=== PATIENT | female | born 1990 | race Caucasian/White ===

== ENCOUNTER 2023-01-31 23:06 | Inpatient (IN) | payer BC ==
[2023-01-31] MEDS ORDERED: OXYTOCIN 10 UNIT/ML 1 ML VIAL IM PRN (23:34)
[2023-01-31] MEDS ORDERED: METHYLERGONOVINE 0.2 MG/ML 1 ML AMP IM PRN (23:34)
[2023-01-31] MEDS ORDERED: LIDOCAINE 0.5% (PF) 5 MG/ML (50 ML SDV) SQ PRN (23:34)
[2023-01-31] MEDS ORDERED: CARBOPROST TROMETHAMINE 250 MCG/ML 1 ML AMP IM PRN (23:34)
[2023-01-31] MEDS ORDERED: TERBUTALINE 1 MG/ML VIAL SQ PRN (23:34)
[2023-01-31] MEDS ORDERED: miSOPROStoL 200 MCG TAB PO PRN (23:34)
[2023-01-31] MEDS ORDERED: TRANEXAMIC 1,000 MG/100ML-NACL 1,000 MG in EMPTY BAG 1 BAG IV PRN (23:34)
[2023-01-31] MEDS ORDERED: LACTATED RINGERS 1,000 ML IV SCH (23:45)
[2023-02-01 00:34] VITALS: RESP 16
[2023-02-01 00:37] LABS: Basophils % (A) 0 %; Eosinophils # (A) 0.2 k/uL (0-0.7); Eosinophils % (A) 2 %; HCT 36.3 % (34.0-46.0); HGB 12.1 gm/dL (11.4-16.0); Lymphocytes # (A) 2.4 k/uL (1.0-4.8); Lymphocytes % (A) 24 %; MCH 29.4 pg (25.0-35.0); MCHC 33.4 g/dL (31.0-37.0); MCV 88.2 fL (80.0-100.0); Mean Platelet Volume 9.5; Monocytes # (A) 0.7 k/uL (0-1.0); Monocytes % (A) 6 %; Neutrophils # (A) 6.7 k/uL (1.3-7.7); Neutrophils % (A) 66 %; Platelet Count 281 k/uL (150-450); RBC 4.11 m/uL (3.80-5.40); RDW 13.2 % (11.5-15.5); WBC 10.2 k/uL (3.8-10.6)
--- NOTE | 2023-02-01 02:40 | P.HPOB ---
History of Present Illness H&P Date: 02/01/23 Chief Complaint: Labor at 40-4/7 This is a 32-year-old 3 para 1011 woman with an estimated due date of 01/28/2023 who presents at 40-4/7 weeks gestation in spontaneous active labor. She's had an uncomplicated . Obstetrical history is significant for one term vaginal delivery in 2019 of an 8 lbs. 4 oz. and 1 early first trimester spontaneous miscarriage. Laboratory data: Blood type A+ antibody screen negative, rubella immune, VDRL nonreactive, hepatitis B surface antigen negative, HIV negative, gonorrhea and clinic cultures negative, group B strep negative Review of Systems All systems: negative Past Medical History Past Medical History: No Reported History History of Any Multi-Drug Resistant Organisms: None Reported Past Surgical History: No Surgical Hx Reported Past Anesthesia/Blood Transfusion Reactions: No Reported Reaction Past Psychological History: No Psychological Hx Reported, Anxiety Smoking Status: Never smoker Past Drug Use History: None Reported Medications and Allergies Home Medications Medication Instructions Recorded Confirmed Type Vit No.179/Iron/Folic 1 tab PO DAILY 01/31/23 01/31/23 History [ Tablet] Allergies Allergy/AdvReac Type Severity Reaction Status Date / Time adhesive Allergy Rash/Hives Verified 01/31/23 23:24 Exam Vital Signs Temp Pulse Resp BP Pulse Ox 01/31/23 23:48 98.1 F 92 16 130/77 97 Intake and Output 01/31/23 01/31/23 02/01/23 14:59 22:59 06:59 Other: Weight 90.718 kg Upon my initial evaluation on the patient's cervix is 9 cm dilated 100% effaced and the vertex in the 0 station. No membranes are palpable. She is actively laboring. heart tones are category 1. Results Result Diagrams: 02/01/23 00:16 Assessment and Plan (1) Post-dates Current Visit: Yes Status: Acute Code(s): O48.0 - POST-TERM SNOMED Code(s): 84353278 (2) Spontaneous onset of labor Current Visit: Yes Status: Acute Code(s): SHO9998 - SNOMED Code(s): 94658615 (3) Spontaneous rupture of membranes Current Visit: Yes Status: Acute Code(s): WAO3795 - SNOMED Code(s): 435103441 Plan: 32-year-old 3 para 1 admitted in spontaneous advanced active labor at 40-4/7 weeks' gestation. Group B strep negative and Rh+. heart tones are reassuring by external monitoring. Anticipate normal spontaneous vaginal delivery.
[2023-02-01] MEDS ORDERED: SIMETHICONE 80 MG CHEWABLE PO PRN (03:03)
[2023-02-01] MEDS ORDERED: diphenhydrAMINE 50 MG/ML 1 ML VIAL IVP PRN ×2 (03:03)
[2023-02-01] MEDS ORDERED: ZOLPIDEM 5 MG TAB PO PRN (03:03)
[2023-02-01] MEDS ORDERED: HYDROCORTISONE 2.5% RECTAL CREAM 30 GM TUBE RECTAL PRN (03:03)
[2023-02-01] MEDS ORDERED: diphenhydrAMINE 50 MG CAP PO PRN (03:03)
[2023-02-01] MEDS ORDERED: LANOLIN CREAM 5 GM TUBE TOPICAL PRN (03:03)
[2023-02-01] MEDS ORDERED: diphenhydrAMINE 25 MG CAP PO PRN (03:03)
[2023-02-01] MEDS ORDERED: BENZOCAINE/MENTHOL SPRAY 1 GM/SPRAY AEROSOL TOPICAL PRN (03:03)
--- NOTE | 2023-02-01 03:03 | P.PROBDLV ---
Vaginal Delivery Note - . Vaginal Delivery Note: Findings: Female in the vertex presentation with Apgars of 8 at 1 minute and 9 at 5 minutes. Weight pending. First-degree perineal laceration. Intact three-vessel cord placenta. EBL approximately 100 mL's. Delivery summary: This is a 32 year old 3 para 1011 woman who presented at 40-4/7 weeks gestation in active labor. She had a known, located . She denied rupture of membranes. Following admission she had rapid progression to complete cervical dilation and had strong urge to push. She had spontaneous rupture of membranes with clear fluid noted. She was repositioned, prepped and draped in the dorsal modified Mark position. With additional maternal effort 1 the head followed rapidly by the shoulders and the rest of the body delivered. The nose and mouth were bulb suctioned and the infant was placed on the maternal abdomen. Eventually the cord was clamped and cut. Apgars were 8 at 1 minute and 9 at 5 minutes. Weight pending. An intact, three-vessel cord placenta was then delivered after an approximately 5 minute third stage of labor. The perineum was inspected and a first-degree perineal laceration was noted. This was infused with lidocaine and repaired with a single [id number] stitch with 3-0 Vicryl suture. The uterus was massaged and was noted to be firm. both mother and infant were doing well post delivery in the room. Counts correct.
[2023-02-01] MEDS ORDERED: OXYTOCIN 30 UNITS/500 ML NS 30 UNIT in SALINE 1 500ML.BAG IV SCH (03:15)
[2023-02-01] MEDS ORDERED: ACETAMINOPHEN TAB 325 MG TAB PO PRN (03:30)
[2023-02-01] MEDS ORDERED: IBUPROFEN 600 MG TAB PO PRN (03:31)
[2023-02-01] MEDS: SENNOSIDES-DOCUSATE SODIUM 1 EACH TAB PO SCH ×2 (08:38→20:14)
[2023-02-02 08:09] LABS: Basophils % (A) 0 %; Eosinophils # (A) 0.2 k/uL (0-0.7); Eosinophils % (A) 2 %; HCT 35.2 % (34.0-46.0); HGB 11.7 gm/dL (11.4-16.0); Lymphocytes # (A) 2.4 k/uL (1.0-4.8); Lymphocytes % (A) 23 %; MCH 30.1 pg (25.0-35.0); MCHC 33.4 g/dL (31.0-37.0); Mean Platelet Volume 9.5; Monocytes # (A) 0.4 k/uL (0-1.0); Monocytes % (A) 4 %; Neutrophils # (A) 7.3 k/uL (1.3-7.7); Neutrophils % (A) 69 %; Platelet Count 279 k/uL (150-450); RBC 3.91 m/uL (3.80-5.40); RDW 13.2 % (11.5-15.5); WBC 10.5 k/uL (3.8-10.6)
[2023-02-02 08:33] VITALS: BP 110/69; PULSE 91; TEMP 98.7
[2023-02-02] MEDS: SENNOSIDES-DOCUSATE SODIUM 1 EACH TAB PO SCH (08:47)
--- NOTE | 2023-02-02 08:56 | P.DS ---
Providers Date of admission: 01/31/23 23:35 Expected date of discharge: 02/02/23 Attending physician: Mary Caputo MD Primary care physician: Stated None - Discharge Diagnosis(es) (1) Post-dates Current Visit: Yes Status: Acute (2) Spontaneous onset of labor Current Visit: Yes Status: Acute (3) Spontaneous rupture of membranes Current Visit: Yes Status: Acute (4) Normal spontaneous vaginal delivery Current Visit: Yes Status: Acute (5) Perineal laceration with delivery, first degree Current Visit: Yes Status: Acute Hospital Course: This is a 32-year-old 3 now para 2012 woman who is admitted at 40-4/7 weeks gestation in spontaneous active labor. Following admission she had rapid progression to complete cervical dilation. She had spontaneous rupture of membranes at that time. She had a rapid delivery of a liveborn female over a first-degree perineal laceration. Please see the delivery summary for details. Patient's course was unremarkable. By the morning of day #1 she was ambulating and voiding without difficulty, her lochia was decreasing and she was breast-feeding successfully. Her vital signs were stable and postoperative labs within normal limits. She was therefore discharged home with routine instructions for care and follow-up. Of note she did have a history of significant depression with her last delivery and signs of depression and treatment options were reviewed with the patient in detail. Patient Condition at Discharge: Good Plan - Discharge Summary New Discharge Prescriptions: No Action Vit No.179/Iron/Folic [ Tablet] 1 tab PO DAILY Discharge Medication List Vit No.179/Iron/Folic [ Tablet] 1 tab PO DAILY 01/31/23 [History] Follow up Appointment(s)/Referral(s): Mary Caputo MD [STAFF PHYSICIAN] - 4 Weeks Activity/Diet/Wound Care/Special Instructions: Follow-up in the office in 6 weeks . Call with any concerning signs or symptoms including heavy vaginal bleeding, severe abdominal pain, fever greater than 101, swelling or redness of the lower extremities, foul vaginal discharge, or signs of depression. Nothing in the vagina for 6 weeks after delivery, specifically no intercourse.
== END 2023-02-02 12:30 | disposition home or self-care (01) | DRG 807 ==
LOC: FBPOP 23:06 → 4FBP 23:35
PROVIDERS: ADMIT Obstetrics & Gynecology; ATTEND Obstetrics & Gynecology
PROC: 10E0XZZ Delivery of Products of Conception, External Approach (ICD-10-PCS; principal; 2023-02-01)
PROC: 0HQ9XZZ Repair Perineum Skin, External Approach (ICD-10-PCS; 2023-02-01)
DX: O48.0 Post-term pregnancy (principal); Z37.0 Single live birth; O62.3 Precipitate labor; O70.0 First degree perineal laceration during delivery; Z3A.40 40 weeks gestation of pregnancy
CPT/HCPCS: 85025; 86850; 86900; 86901; 99213